=== PATIENT | male | born 1965 | race American Indian/Alaskan Native ===

== ENCOUNTER 2017-05-27 09:20 | Emergency (ER) | payer MEDICARE ==
--- NOTE | 2017-05-27 12:11 | Cat Scan Report ---
CT FACIAL BONES WITHOUT CONTRAST: HISTORY: Cellulitis, pain, orbital cellulitis. TECHNIQUE: Helical CT images with sagittal and coronal CT reformations. FINDINGS: There is moderate soft tissue swelling in the right periorbital region consistent with a post-septal cellulitis. The orbital contents are within normal limits bilaterally. No retro-orbital pathology is appreciated. The orbital cavities are symmetric and intact. The mandible is intact. The skull base and upper cervical spine demonstrate no evidence for acute injury. There is near-complete opacification of the right maxillary sinus. There is mild mucosal thickening in the ethmoid air cells and left maxillary sinus. No sinus wall fracture. IMPRESSION: Findings consistent with post-septal orbital cellulitis on the right side. Sinus disease which appears chronic. No facial bone injury or abnormality detected.
--- NOTE | 2017-05-27 12:14 | Emergency Department Report ---
ED Eye Problem HPI - General Chief complaint: Eye Problems Stated complaint: INSECT BITE REACTION Source: patient Mode of arrival: Ambulatory Limitations: No Limitations - History of Present Illness Initial comments: 52 y/o M with a PMHx of type I DM and HTN presents with a R sided abscesss and periorbital swelling that pt stated started on after he walked into a spider web at work. He states that it stated off as itching and so he wiped the area with an alcohol swab. Pt was seen in dialysis on Sunday and states that the pain and swelling had worsened and the doctor started him on LVQ and advised to come to the ER if the swelling and pain continues. Pt reports to pain, tightness, blurried vision, no chest pain, SOB, diff breathing, chest tightness, oozing, pus, or drainage from the site. Drug allergy to lisinopril. -: days(s) (2-3 days) Onset Description: gradual Location: right eye Place: work Eye Symptoms: redness, pain, decreased vision, blurry vision Severity: severe Severity scale (0 -10): 9 If Pain, Quality: throbbing Consistency: constant Associated Symptoms: none Treatments Prior to Arrival: other (LVQ) - Related Data Previous Rx's Medication Instructions Recorded Last Taken Type Insulin NPH/Regular [NovoLIN 70/30] 10 unit SUB-Q BIDDIAB #500 units 02/03/15 Unknown Rx Ciprofloxacin HCl [Ciprofloxacin 500 mg PO Q48H #20 tablet 05/20/16 Unknown Rx TAB] Gabapentin [Neurontin] 100 mg PO Q12H #60 capsule 05/20/16 Unknown Rx Thiamine [Vitamin B-1] 100 mg PO QDAY #30 tablet 05/20/16 Unknown Rx Verapamil ER [Calan SR] 180 mg PO DAILY #30 tablet 05/20/16 Unknown Rx hydrALAZINE [Apresoline TAB] 50 mg PO Q8HR #90 tablet 05/20/16 Unknown Rx metroNIDAZOLE [Flagyl] 500 mg PO Q8HR #7 day 05/20/16 Unknown Rx Allergies Allergy/AdvReac Type Severity Reaction Status Date / Time lisinopril Allergy Swelling Verified 05/14/16 20:20 ED Review of Systems ROS: Stated complaint: INSECT BITE REACTION Other details as noted in HPI Constitutional: denies: chills, fever Eyes: eye pain, vision change, other (swelling around the right orbit, and a quarter-sized abscess noted just lateral to the R eyelid) ENT: denies: ear pain, throat pain Respiratory: denies: cough, shortness of breath, wheezing Cardiovascular: denies: chest pain, palpitations Gastrointestinal: denies: abdominal pain, nausea, diarrhea Genitourinary: denies: urgency, dysuria Skin: other (there is a quarter-sized abscess lateral to the R eye) Neurological: denies: headache, weakness, paresthesias Psychiatric: denies: anxiety, depression ED Past Medical Hx - Past Medical History Hx Hypertension: Yes Hx Congestive Heart Failure: No Hx Diabetes: Yes Hx Liver Disease: No Hx Renal Disease: No Hx Arthritis: No Hx Headaches / Migraines: No Hx Seizures: No Hx Kidney Stones: No Hx Asthma: No Hx COPD: No Hx Dementia: No Hx HIV: No Additional medical history: prostate cancer removed - Surgical History Additional Surgical History: Fistula in Left Arm. prostate removal for cancer - Social History Smoking Status: Never Smoker - Medications Home Medications: Home Medications Medication Instructions Recorded Confirmed Last Taken Type Insulin NPH/Regular [NovoLIN 70/30] 10 unit SUB-Q BIDDIAB #500 units 02/03/15 Unknown Rx Ciprofloxacin HCl [Ciprofloxacin 500 mg PO Q48H #20 tablet 05/20/16 Unknown Rx TAB] Gabapentin [Neurontin] 100 mg PO Q12H #60 capsule 05/20/16 Unknown Rx Thiamine [Vitamin B-1] 100 mg PO QDAY #30 tablet 05/20/16 Unknown Rx Verapamil ER [Calan SR] 180 mg PO DAILY #30 tablet 05/20/16 Unknown Rx hydrALAZINE [Apresoline TAB] 50 mg PO Q8HR #90 tablet 05/20/16 Unknown Rx metroNIDAZOLE [Flagyl] 500 mg PO Q8HR #7 day 05/20/16 Unknown Rx ED Physical Exam - General Limitations: No Limitations General appearance: alert, in no apparent distress - Head Head exam: Present: atraumatic, normocephalic - Eye Eye exam: Present: PERRL, EOMI, other (no pain with EOMI, there is signficant swelling and TTP at the right periorbital region, visual carmona were normal, no major changes in visual acuity) Pupils: Present: normal accommodation - Expanded Eye Exam Expanded Eyelids: Swelling: Right Pupils: Regular, Round: Right, Reactive: Right - ENT ENT exam: Present: mucous membranes moist - Neck Neck exam: Present: normal inspection, full ROM - Respiratory Respiratory exam: Present: normal lung sounds bilaterally. Absent: respiratory distress - Cardiovascular Cardiovascular Exam: Present: regular rate, normal rhythm. Absent: systolic murmur, diastolic murmur, rubs, gallop - Neurological Exam Neurological exam: Present: alert, oriented X3, normal gait - Psychiatric Psychiatric exam: Present: normal affect, normal mood - Skin Skin exam: Present: other (there is a quarter-sized abscess noted lateral to the periorbital swelling of the R eye, TTP with mild warmth to touch, no acitve oozing, pus, or drainage noted at the site) ED Course Vital Signs 05/27/17 05/27/17 09:25 13:41 Temperature 98.3 F 98.8 F Pulse Rate 100 H 82 Respiratory 16 18 Rate Blood Pressure 147/76 Blood Pressure 161/81 [Left] O2 Sat by Pulse 96 100 Oximetry ED Medical Decision Making - Lab Data Result diagrams: 05/27/17 12:27 05/27/17 12:27 - Radiology Data Radiology results: image reviewed Facial CT: Findings consistent with post-septal orbital cellulitis on the right side. Sinus disease which appears chronic. No facial bone injury or abnormality detected. - Medical Decision Making Pt was examined by myself and Dr. Cordova. Facial CT was indicative of post- septal cellulitis. Basic lab work was also conducted on the pt here in the ED including CBC with diff and BMP. Pt was given 3 grams of ampillicin/sulbactam. [facility]Dr. Denton[facility] was made by Dr. Cordova, for further evaluation and work-up regarding this condition. Critical care attestation.: If time is entered above; I have spent that time in minutes in the direct care of this critically ill patient, excluding procedure time. ED Disposition Clinical Impression: Cellulitis Qualifiers: Site of cellulitis: periorbital Laterality: right Qualified Code(s): L03.213 - Periorbital cellulitis Disposition: DC/TX-70 ANOTHER TYPE HLTHCARE Is pt being admited?: Yes Does the pt Need Aspirin: No Condition: Poor Additional Instructions: [facility]- Dr. Denton. Referrals: PRIMARY CARE, [Primary Care Provider] - 3-5 Days
[2017-05-27 12:50] LABS: Basophils % (Auto) 0.6 % (0.0-1.8); Eosinophils % (Auto) 1.9 % (0.0-4.3); Hemoglobin 11.3 gm/dl (11.8-15.2); Mean Corpuscular HGB Conc 32 % (32-34); Mean Corpuscular Hemoglobin 30 pg (28-32); Mean Corpuscular Volume 93 fl (84-94); Platelet Count 134 K/mm3 (140-440); Red Blood Count 3.78 M/mm3 (3.65-5.03); Red Cell Distribution Width 14.2 % (13.2-15.2)
[2017-05-27 12:58] LABS: Chloride 98.5 mmol/L (98-107); Potassium 5.4 mmol/L (3.6-5.0)
[2017-05-27] MEDS ORDERED: UNASYN/NS 3 GM/100 ML 3 GM/100 ML BAG IV SCH (13:00)
[2017-05-27] MEDS ORDERED: KIONEX PO ONE (13:02)
--- NOTE | 2017-05-27 13:03 | Event Note ---
Date: 05/27/17 52-year-old male with right-sided with post-septal cellulitis confirmed on CT scan. Patient already seen by his primary care doctor for this as an outpatient , patient prescribed Levaquin, reports compliance, patient require surgical consultation unavailable at this facility. Case discussed with ophthalmology at [facility], Dr. Denton, he will see the patient in consultation. Case presented to the ER physician carmen Rendon, Dr John; they accept the patient as an ER to ER transfer. Sodium: 140 Potassium: 5.4 Chloride: 98.5. Patient informed of these findings, he verbalizes understanding regarding need for transfer. As the patient has a CT scan demonstrated post-septal cellulitis, this is a potentially sight threatening condition, and requires ophthalmology consultation , which this hospital cannot provide. Therefore, it is in the patient's best interest to be transferred to the aforementioned hospital for services not available at this facility. Vital Signs 05/27/17 09:25 Temperature 98.3 F Pulse Rate 100 H Respiratory 16 Rate Blood Pressure 147/76 O2 Sat by Pulse 96 Oximetry Lab Results 05/27/17 05/27/17 Range/Units 12:27 12:27 WBC 8.0 (4.5-11.0) K/mm3 RBC 3.78 (3.65-5.03) M/mm3 Hgb 11.3 L (11.8-15.2) gm/dl Hct 35.0 L (35.5-45.6) % MCV 93 (84-94) fl MCH 30 (28-32) pg MCHC 32 (32-34) % RDW 14.2 (13.2-15.2) % Plt Count 134 L (140-440) K/mm3 Lymph % (Auto) 11.5 L (13.4-35.0) % [place] % (Auto) 10.3 H (0.0-7.3) % Eos % (Auto) 1.9 (0.0-4.3) % Baso % (Auto) 0.6 (0.0-1.8) % Lymph # 0.9 L (1.2-5.4) K/mm3 [place] # 0.8 (0.0-0.8) K/mm3 Eos # 0.2 (0.0-0.4) K/mm3 Baso # 0.0 (0.0-0.1) K/mm3 Seg Neutrophils % 75.7 H (40.0-70.0) % Seg Neutrophils # 6.0 (1.8-7.7) K/mm3 Carbon Dioxide 23 (22-30) mmol/L BUN 41 H (9-20) mg/dL Creatinine 11.7 H (0.8-1.5) mg/dL Estimated GFR 6 ml/min BUN/Creatinine Ratio 4 % Glucose 86 (75-100) mg/dL Calcium 10.0 (8.4-10.2) mg/dL
[2017-05-27] MEDS ORDERED: TYLENOL #3 PO ONE (13:21)
[2017-05-27 13:42] VITALS: BP 161/81
== END 2017-05-27 15:15 | disposition other institution (70) ==
LOC: ED 09:20
DX: L03.213 Periorbital cellulitis (principal); T63.391A Toxic effect of venom of other spider, accidental (unintentional), initial encounter; E11.9 Type 2 diabetes mellitus without complications; I10 Essential (primary) hypertension; Z79.4 Long term (current) use of insulin; Z88.8 Allergy status to other drugs, medicaments and biological substances
CPT/HCPCS: 36415; 70486; 80048; 85025; 96374

== ENCOUNTER 2018-10-23 21:25 | Emergency (ER) | payer MEDICARE ==
--- NOTE | 2018-10-23 22:02 | Emergency Department Report ---
Blank Doc - Documentation Documentation: This is a 53-year-old male that presents with right sided breast area pain with ecchymosis. Patient denies any trauma or injuries. This initial assessment/diagnostic orders/clinical plan/treatment(s) is/are subject to change based on patient's health status, clinical progression and re- assessment by fellow clinical providers in the ED. Further treatment and workup at subsequent clinical providers discretion. Patient/guardians urged not to elope from the ED as their condition may be serious if not clinically assessed and managed. Initial orders include: 1- Patient sent to [facility] for further evaluation and treatment 2- Labs
[2018-10-23 22:04] VITALS: BP 106/61
[2018-10-23 22:47] LABS: Basophils # (Auto) 0.1 K/mm3 (0.0-0.1); Basophils % (Auto) 0.8 % (0.0-1.8); Eosinophils # (Auto) 0.2 K/mm3 (0.0-0.4); Eosinophils % (Auto) 2.3 % (0.0-4.3); Hemoglobin 11.7 gm/dl (11.8-15.2); Lymphocytes # (Auto) 1.3 K/mm3 (1.2-5.4); Lymphocytes % (Auto) 18.9 % (13.4-35.0); Monocytes # (Auto) 0.9 K/mm3 (0.0-0.8); Monocytes % (Auto) 13.3 % (0.0-7.3)
[2018-10-23 22:57] LABS: INR 0.93 (0.87-1.13)
[2018-10-23 22:58] LABS: Partial Thromboplastin Time 32.8 Sec. (24.2-36.6)
[2018-10-23 23:09] LABS: Alanine Aminotransferase 11 units/L (7-56); Albumin 4.1 g/dL (3.9-5); BUN/Creatinine Ratio 5; Blood Urea Nitrogen 40 mg/dL (9-20); Calcium 9.8 mg/dL (8.4-10.2); Hemolysis Index 20
[2018-10-23 23:10] LABS: Bilirubin,Direct < 0.2 mg/dL (0-0.2)
[2018-10-23 23:42] LABS: Hematocrit 37.1 % (35.5-45.6); Mean Corpuscular HGB Conc 31 % (32-34); Mean Corpuscular Volume 96 fl (84-94); Platelet Count 174 K/mm3 (140-440); Red Blood Count 3.88 M/mm3 (3.65-5.03); Red Cell Distribution Width 15.2 % (13.2-15.2)
--- NOTE | 2018-10-24 01:10 | Event Note ---
Date: 10/24/18 Patient presenting with basically nontraumatic spontaneous right sided chest wall ecchymosis, developed over the past 24-36 hours. Minimally tender, however no redness, pus or streaking. Does not appear to be volume overloaded, afebrile with reassuring vital signs, denies hematemesis, bright red blood per rectum, and hemoptysis. Laboratory studies are essentially unremarkable and appeared to be at baseline, this is most likely a spontaneous soft tissue bleed. This can currently be managed with supportive care, it does not appear to rep resent a life-threatening condition, and patient understands return precautions. Vital Signs 10/23/18 22:01 Temperature 97.7 F Pulse Rate 102 H Respiratory 18 Rate Blood Pressure 106/61 O2 Sat by Pulse 97 Oximetry Lab Results 10/23/18 10/23/18 10/23/18 Range/Units 22:22 22:22 22:22 WBC 6.8 (4.5-11.0) K/mm3 RBC 3.88 (3.65-5.03) M/mm3 Hgb 11.7 L (11.8-15.2) gm/dl Hct 37.1 (35.5-45.6) % MCV 96 H (84-94) fl MCH 30 (28-32) pg MCHC 31 L (32-34) % RDW 15.2 (13.2-15.2) % Plt Count 174 (140-440) K/mm3 Lymph % (Auto) 18.9 (13.4-35.0) % [place] % (Auto) 13.3 H (0.0-7.3) % Eos % (Auto) 2.3 (0.0-4.3) % Baso % (Auto) 0.8 (0.0-1.8) % Lymph # 1.3 (1.2-5.4) K/mm3 [place] # 0.9 H (0.0-0.8) K/mm3 Eos # 0.2 (0.0-0.4) K/mm3 Baso # 0.1 (0.0-0.1) K/mm3 Seg Neutrophils % 64.7 (40.0-70.0) % Seg Neutrophils # 4.4 (1.8-7.7) K/mm3 PT 13.0 (12.2-14.9) Sec. INR 0.93 (0.87-1.13) APTT 32.8 (24.2-36.6) Sec. Sodium 137 (137-145) mmol/L Potassium 4.6 (3.6-5.0) mmol/L Chloride 93.7 L (98-107) mmol/L Carbon Dioxide 28 (22-30) mmol/L Anion Gap 20 mmol/L BUN 40 H (9-20) mg/dL Creatinine 8.3 H (0.8-1.5) mg/dL Estimated GFR 8 ml/min BUN/Creatinine Ratio 5 % Glucose 123 H (75-100) mg/dL Calcium 9.8 (8.4-10.2) mg/dL Total Bilirubin 0.30 (0.1-1.2) mg/dL Direct Bilirubin < 0.2 (0-0.2) mg/dL Indirect Bilirubin 0.1 mg/dL AST 15 (5-40) units/L ALT 11 (7-56) units/L Alkaline Phosphatase 146 H (35-129) units/L Total Protein 7.6 (6.3-8.2) g/dL Albumin 4.1 (3.9-5) g/dL Albumin/Globulin Ratio 1.2 %
--- NOTE | 2018-10-24 01:14 | Emergency Department Report ---
- General Chief complaint: Skin Rash Stated complaint: RIGHT SIDE PAIN DISCOLORATION Time Seen by Provider: 10/23/18 22:00 Source: patient Mode of arrival: Ambulatory Limitations: No Limitations - History of Present Illness Initial comments: 53-year-old -[place] male with a past medical history of end-stage renal disease currently on dialysis Sunday and Sunday with a fissure in the left arm reports that he has swelling and pain in the right breast. Patient re ports that on Sunday he had noticed a bump on right breast he did not scratch or pick the bump next morning Sunday he woke up with discoloration of the right breast with pain. Patient reports he did go to dialysis on Sunday informed the charge nurse they recommend for him to follow up at the emergency room if pain continued. MD complaint: discoloration -: days(s) (1) Tetanus Up to Date: yes Location: chest (right breast) Quality: aching Consistency: constant Improves with: none Worsens with: palpation Associated symptoms: denies other symptoms Treatments Prior to Arrival: none - Related Data Previous Rx's Medication Instructions Recorded Last Taken Type Insulin NPH/Regular [NovoLIN 70/30] 10 unit SUB-Q BIDDIAB #500 units 02/03/15 Unknown Rx Ciprofloxacin HCl [Ciprofloxacin 500 mg PO Q48H #20 tablet 05/20/16 Unknown Rx TAB] Gabapentin [Neurontin] 100 mg PO Q12H #60 capsule 05/20/16 Unknown Rx Thiamine [Vitamin B-1] 100 mg PO QDAY #30 tablet 05/20/16 Unknown Rx Verapamil ER [Calan SR] 180 mg PO DAILY #30 tablet 05/20/16 Unknown Rx hydrALAZINE [Apresoline TAB] 50 mg PO Q8HR #90 tablet 05/20/16 Unknown Rx metroNIDAZOLE [Flagyl] 500 mg PO Q8HR #7 day 05/20/16 Unknown Rx Acetaminophen/Codeine [Tylenol 1 tab PO Q6H PRN #12 tab 10/24/18 Unknown Rx /Codeine # 3 tab] Allergies Allergy/AdvReac Type Severity Reaction Status Date / Time lisinopril Allergy Swelling Verified 05/14/16 20:20 Abscess Boil HPI - HPI Chief Complaint: Skin Rash Stated Complaint: RIGHT SIDE PAIN DISCOLORATION Time Seen by Provider: 10/23/18 22:00 Home Medications: Previous Rx's Medication Instructions Recorded Last Taken Type Insulin NPH/Regular [NovoLIN 70/30] 10 unit SUB-Q BIDDIAB #500 units 02/03/15 Unknown Rx Ciprofloxacin HCl [Ciprofloxacin 500 mg PO Q48H #20 tablet 05/20/16 Unknown Rx TAB] Gabapentin [Neurontin] 100 mg PO Q12H #60 capsule 05/20/16 Unknown Rx Thiamine [Vitamin B-1] 100 mg PO QDAY #30 tablet 05/20/16 Unknown Rx Verapamil ER [Calan SR] 180 mg PO DAILY #30 tablet 05/20/16 Unknown Rx hydrALAZINE [Apresoline TAB] 50 mg PO Q8HR #90 tablet 05/20/16 Unknown Rx metroNIDAZOLE [Flagyl] 500 mg PO Q8HR #7 day 05/20/16 Unknown Rx Acetaminophen/Codeine [Tylenol 1 tab PO Q6H PRN #12 tab 10/24/18 Unknown Rx /Codeine # 3 tab] Allergies/Adverse Reactions: Allergies Allergy/AdvReac Type Severity Reaction Status Date / Time lisinopril Allergy Swelling Verified 05/14/16 20:20 ED Review of Systems ROS: Stated complaint: RIGHT SIDE PAIN DISCOLORATION Other details as noted in HPI Comment: All other systems reviewed and negative Skin: change in color ( right breast) ED Past Medical Hx - Past Medical History Hx Hypertension: Yes (controlled) Hx Congestive Heart Failure: No Hx Diabetes: Yes Hx Liver Disease: No Hx Renal Disease: Yes (ESRD) Hx Arthritis: No Hx Headaches / Migraines: No Hx Seizures: No Hx Kidney Stones: No Hx Asthma: No Hx COPD: No Hx Dementia: No Hx HIV: No Additional medical history: prostate cancer removed - Surgical History Additional Surgical History: Fistula in Left Arm. prostate removal for cancer - Social History Smoking Status: Never Smoker Substance Use Type: None - Medications Home Medications: Home Medications Medication Instructions Recorded Confirmed Last Taken Type Insulin NPH/Regular [NovoLIN 70/30] 10 unit SUB-Q BIDDIAB #500 units 02/03/15 05/15/16 Unknown Rx Ciprofloxacin HCl [Ciprofloxacin 500 mg PO Q48H #20 tablet 05/20/16 Unknown Rx TAB] Gabapentin [Neurontin] 100 mg PO Q12H #60 capsule 05/20/16 Unknown Rx Thiamine [Vitamin B-1] 100 mg PO QDAY #30 tablet 05/20/16 Unknown Rx Verapamil ER [Calan SR] 180 mg PO DAILY #30 tablet 05/20/16 Unknown Rx hydrALAZINE [Apresoline TAB] 50 mg PO Q8HR #90 tablet 05/20/16 Unknown Rx metroNIDAZOLE [Flagyl] 500 mg PO Q8HR #7 day 05/20/16 Unknown Rx Acetaminophen/Codeine [Tylenol 1 tab PO Q6H PRN #12 tab 10/24/18 Unknown Rx /Codeine # 3 tab] ED Physical Exam - General Limitations: No Limitations General appearance: alert, in no apparent distress - Head Head exam: Present: atraumatic, normocephalic - Eye Eye exam: Present: EOMI - ENT ENT exam: Present: mucous membranes moist - Respiratory Respiratory exam: Present: normal lung sounds bilaterally. Absent: respiratory distress - Cardiovascular Cardiovascular Exam: Present: regular rate, normal rhythm. Absent: systolic murmur, diastolic murmur, rubs, gallop - Neurological Exam Neurological exam: Present: alert, oriented X3, normal gait - Psychiatric Psychiatric exam: Present: normal affect, normal mood - Expanded Skin Exam Expanded Distribution of rash: chest (right breast) Description of rash: Present: tenderness, erythematous, swelling, other (ecchymotic) ED Course Vital Signs 10/23/18 22:01 Temperature 97.7 F Pulse Rate 102 H Respiratory 18 Rate Blood Pressure 106/61 O2 Sat by Pulse 97 Oximetry ED Medical Decision Making - Lab Data Result diagrams: 10/23/18 22:22 10/23/18 22:22 - Medical Decision Making Patient has been evaluated by this provider in fast track. Patient has also been evaluated by ER attending Discussed with patient that this appears to be a hematoma secondary to his history of end-stage renal disease and the fact that he gets heparin with his dialysis. It was discussed with patient that warm compresses to the right breast with help with his pain. I will discharge patient home on Tylenol No. 3 as patient cannot have ibuprofen secondary to end-stage renal disease. Also discussed the patient if his symptoms persist or gets worse to follow up with his primary care provider patient verbalizes understanding Critical care attestation.: If time is entered above; I have spent that time in minutes in the direct care of this critically ill patient, excluding procedure time. ED Disposition Clinical Impression: Chest wall hematoma, Breast hematoma Disposition: DC-01 TO HOME OR SELFCARE Is pt being admited?: No Does the pt Need Aspirin: No Condition: Stable Instructions: Contusion in Adults (ED) Additional Instructions: Please take pain medication as needed. Please do not operate heavy machinery while taking Tylenol No. 3. Please apply warm compresses. Follow-up which are primary care provider if symptoms persist or gets worse. Prescriptions: Acetaminophen/Codeine [Tylenol /Codeine # 3 tab] 1 tab PO Q6H PRN #12 tab PRN Reason: Pain , Severe (7-10) Referrals: PETE SAMSON MD [Primary Care Provider] - 3-5 Days
--- NOTE | 2018-10-31 00:01 | Cat Scan Report ---
PROCEDURE: CT ABDOMEN PELVIS WO CON TECHNIQUE: Axial images obtained abdomen and pelvis without intravenous contrast. Sagittal and coron al reformatted images obtained. HISTORY: LEFT FLANK PAIN COMPARISONS: None FINDINGS: Lung bases demonstrate hypoventilatory change. Extensive groundglass opacity. No effusion. There is b ilateral gynecomastia. Chest wall collateral vessels noted. Liver demonstrates unremarkable noncontrast appearance Contracted gallbladder. No biliary dilatation Spleen top normal size. No focal lesion. Pancreas unremarkable noncontrast appearance Adrenal glands unremarkable noncontrast appearance Kidneys are atrophic. Extensive vascular calcification. Innumerable small cysts. No hydronephrosis. U reters are nondilated. Bladder contracted. Atherosclerotic calcification of the aorta. No aneurysm. No retroperitoneal adenopathy No bowel obstruction. Retained colonic stool suggesting constipation. No diverticulosis. No diverticu litis. Normal appendix. No free air. No free fluid. Omentum and mesentery unremarkable. No acute bony abnormality. Skeletal system is sclerotic compatible with renal osteodystrophy. No acute bony abnormality IMPRESSION: Severe atrophy of [place] kidneys. Extensive vascular calcification Kidneys demonstrate innumerable cysts. There is no hydronephrosis Colonic stool suggesting constipation No free air. No free fluid. No bowel obstruction No acute inflammatory change Lung bases demonstrate hypoventilatory changes Collateral vessels noted of the anterior abdominal wall Gynecomastia Changes of renal osteodystrophy. This document is electronically signed by Elfego Squires MD., October 30 2018 11:58:47 PM ET
== END 2018-10-24 01:38 | disposition home or self-care (01) ==
LOC: ED 21:25
DX: S20.01XA Contusion of right breast, initial encounter (principal); E11.22 Type 2 diabetes mellitus with diabetic chronic kidney disease; I12.0 Hypertensive chronic kidney disease with stage 5 chronic kidney disease or end stage renal disease; N18.6 End stage renal disease; R10.9 Unspecified abdominal pain; Z99.2 Dependence on renal dialysis; Z79.4 Long term (current) use of insulin; Z79.899 Other long term (current) drug therapy; Z88.6 Allergy status to analgesic agent; X58.XXXA Exposure to other specified factors, initial encounter; Y93.89 Activity, other specified; Y92.89 Other specified places as the place of occurrence of the external cause; Y99.8 Other external cause status
CPT/HCPCS: 36415; 74176; 80048; 80076; 85025; 85610; 85730

== ENCOUNTER 2018-11-17 15:01 | Emergency (ER) | payer MEDICARE ==
[2018-11-17 15:16] VITALS: BP 111/72
--- NOTE | 2018-11-17 15:18 | Emergency Department Report ---
Blank Doc - Documentation Documentation: 53 y o male presents with rectal pain x 2 days, no blood, watery loose stools pt on dialsyis MWF non tender abdomen labs, xr ordered acc eval
[2018-11-17 16:07] LABS: Basophils % (Auto) 0.6 % (0.0-1.8); Eosinophils # (Auto) 0.1 K/mm3 (0.0-0.4); Eosinophils % (Auto) 2.3 % (0.0-4.3); Hematocrit 37.1 % (35.5-45.6); Hemoglobin 11.9 gm/dl (11.8-15.2); Lymphocytes % (Auto) 16.6 % (13.4-35.0); Mean Corpuscular HGB Conc 32 % (32-34); Mean Corpuscular Volume 96 fl (84-94); Monocytes # (Auto) 0.6 K/mm3 (0.0-0.8); Monocytes % (Auto) 9.1 % (0.0-7.3); Platelet Count 151 K/mm3 (140-440); Red Blood Count 3.88 M/mm3 (3.65-5.03); Red Cell Distribution Width 15.9 % (13.2-15.2)
--- NOTE | 2018-11-17 17:03 | XRay Report ---
PROCEDURE: XR ABDOMEN 2V TECHNIQUE: Frontal views of the abdomen and pelvis in the supine and upright positions HISTORY: Abdominal Pain COMPARISONS: CT abdomen and pelvis dated October 23, 2018 FINDINGS: The bowel gas pattern is nonobstructive with air in mildly distended loops of colon with multiple air -fluid levels in the ascending and proximal transverse colon on the upright view. This is similar in appearance to the CT abdomen and pelvis dated October 23, 2018. This may represent changes of enteritis. There is no evidence of pneumoperitoneum. The bony structures are unremarkable. IMPRESSION: 1. Nonobstructed bowel gas pattern. 2. Air-fluid levels in the ascending and proximal transverse colon on the upright view similar in mason earance to the previous CT abdomen and pelvis dated October 23, 2017. This may represent changes of ente ritis. If further imaging is required, CT abdomen and pelvis may be helpful. This document is electronically signed by Hallie Morillo MD., November 17 2018 05:01:48 PM ET
--- NOTE | 2018-11-17 17:14 | Emergency Department Report ---
ED General Adult HPI - General Chief complaint: Abdominal Pain Stated complaint: URINATE PROBLEMS/RECTUM PAIN Time Seen by Provider: 11/17/18 15:13 Source: patient Mode of arrival: Ambulatory Limitations: No Limitations - History of Present Illness Initial comments: Pt is a 53 yo male who presents to the ED with c/o rectal pain that began two days ago. He has pain when having a BM. He states he does strain to have a BM. He denies any constipation and states he had a normal BM today. He denies any rectal bleeding, hematocheiza, fever, N/V, drainage from the rectum, hx of hemorrhoids. The patient states he does not take a stool softener. The patient states he had a colonscopy in 2014 which he reports was normal and states he was told to return in 5 years. He is a dialysis patient (MWF) he states he last had it on sunday and will have it again tomorrow. He does not make urine. He denies any CP, palpitations, N/V, or any other sx. Severity scale (0 -10): 9 - Related Data Previous Rx's Medication Instructions Recorded Last Taken Type Insulin NPH/Regular [NovoLIN 70/30] 10 unit SUB-Q BIDDIAB #500 units 02/03/15 Unknown Rx Gabapentin [Neurontin] 100 mg PO Q12H #60 capsule 05/20/16 Unknown Rx Thiamine [Vitamin B-1] 100 mg PO QDAY #30 tablet 05/20/16 Unknown Rx Verapamil ER [Calan SR] 180 mg PO DAILY #30 tablet 05/20/16 Unknown Rx hydrALAZINE [Apresoline TAB] 50 mg PO Q8HR #90 tablet 05/20/16 Unknown Rx Acetaminophen/Codeine [Tylenol 1 tab PO Q6H PRN #12 tab 10/24/18 Unknown Rx /Codeine # 3 tab] Hydrocortisone [Anucort-HC SUPPOS] 25 mg RC BID #20 supp.rect 11/17/18 Unknown Rx Polyethylene Glycol 3350 [Miralax] 119 gm PO DAILY #1 powder 11/17/18 Unknown Rx Sennosides/Docusate Sodium 1 each PO TID #20 tablet 11/17/18 Unknown Rx [Docusate Sodium-Senna Tablet] Allergies Allergy/AdvReac Type Severity Reaction Status Date / Time lisinopril Allergy Swelling Verified 05/14/16 20:20 ED Review of Systems ROS: Stated complaint: URINATE PROBLEMS/RECTUM PAIN Other details as noted in HPI Comment: All other systems reviewed and negative ED Past Medical Hx - Past Medical History Hx Hypertension: Yes (controlled) Hx Congestive Heart Failure: No Hx Diabetes: Yes Hx Liver Disease: No Hx Renal Disease: Yes (ESRD) Hx Arthritis: No Hx Headaches / Migraines: No Hx Seizures: No Hx Kidney Stones: No Hx Asthma: No Hx COPD: No Hx Dementia: No Hx HIV: No Additional medical history: prostate cancer removed - Surgical History Past Surgical History?: Yes Additional Surgical History: Fistula in Left Arm. prostate removal for cancer - Social History Smoking Status: Never Smoker Substance Use Type: None - Medications Home Medications: Home Medications Medication Instructions Recorded Confirmed Last Taken Type Insulin NPH/Regular [NovoLIN 70/30] 10 unit SUB-Q BIDDIAB #500 units 02/03/15 05/15/16 Unknown Rx Gabapentin [Neurontin] 100 mg PO Q12H #60 capsule 05/20/16 Unknown Rx Thiamine [Vitamin B-1] 100 mg PO QDAY #30 tablet 05/20/16 Unknown Rx Verapamil ER [Calan SR] 180 mg PO DAILY #30 tablet 05/20/16 Unknown Rx hydrALAZINE [Apresoline TAB] 50 mg PO Q8HR #90 tablet 05/20/16 Unknown Rx Acetaminophen/Codeine [Tylenol 1 tab PO Q6H PRN #12 tab 10/24/18 Unknown Rx /Codeine # 3 tab] Hydrocortisone [Anucort-HC SUPPOS] 25 mg RC BID #20 supp.rect 11/17/18 Unknown Rx Polyethylene Glycol 3350 [Miralax] 119 gm PO DAILY #1 powder 11/17/18 Unknown Rx Sennosides/Docusate Sodium 1 each PO TID #20 tablet 11/17/18 Unknown Rx [Docusate Sodium-Senna Tablet] ED Physical Exam - General Limitations: No Limitations General appearance: alert, in no apparent distress - Head Head exam: Present: atraumatic, normocephalic - Eye Eye exam: Present: normal appearance, PERRL, EOMI - ENT ENT exam: Present: mucous membranes moist - Respiratory Respiratory exam: Absent: respiratory distress - Cardiovascular Cardiovascular Exam: Present: regular rate - GI/Abdominal GI/Abdominal exam: Present: soft. Absent: distended, tenderness, guarding, rebound, rigid - Rectal Rectal exam: Present: normal rectal tone, heme (-) stool, hemorrhoids, other (3 external hemorrhoids on examination, no internal hemorrhoids, brown stool on exam, hemocult negative) - Neurological Exam Neurological exam: Present: alert, oriented X3 - Psychiatric Psychiatric exam: Present: normal affect, normal mood - Skin Skin exam: Present: warm, dry, intact ED Course Vital Signs 11/17/18 15:14 Temperature 97.5 F L Pulse Rate 94 H Respiratory 18 Rate Blood Pressure 111/72 O2 Sat by Pulse 94 Oximetry ED Medical Decision Making - Lab Data Result diagrams: 11/17/18 15:41 11/17/18 15:41 Lab Results 11/17/18 11/17/18 Range/Units 15:41 15:41 WBC 6.1 (4.5-11.0) K/mm3 RBC 3.88 (3.65-5.03) M/mm3 Hgb 11.9 (11.8-15.2) gm/dl Hct 37.1 (35.5-45.6) % MCV 96 H (84-94) fl MCH 31 (28-32) pg MCHC 32 (32-34) % RDW 15.9 H (13.2-15.2) % Plt Count 151 (140-440) K/mm3 Lymph % (Auto) 16.6 (13.4-35.0) % Carter % (Auto) 9.1 H (0.0-7.3) % Eos % (Auto) 2.3 (0.0-4.3) % Baso % (Auto) 0.6 (0.0-1.8) % Lymph # 1.0 L (1.2-5.4) K/mm3 Carter # 0.6 (0.0-0.8) K/mm3 Eos # 0.1 (0.0-0.4) K/mm3 Baso # 0.0 (0.0-0.1) K/mm3 Seg Neutrophils % 71.4 H (40.0-70.0) % Seg Neutrophils # 4.4 (1.8-7.7) K/mm3 Sodium 136 L (137-145) mmol/L Potassium 5.0 (3.6-5.0) mmol/L Chloride 92.4 L (98-107) mmol/L Carbon Dioxide 23 (22-30) mmol/L Anion Gap 26 mmol/L BUN 62 H (9-20) mg/dL Creatinine 13.6 H (0.8-1.5) mg/dL Estimated GFR 5 ml/min BUN/Creatinine Ratio 5 % Glucose 179 H (75-100) mg/dL Calcium 9.0 (8.4-10.2) mg/dL - Radiology Data Radiology results: report reviewed HISTORY: Abdominal Pain COMPARISONS: CT abdomen and pelvis dated October 23, 2018 FINDINGS: The bowel gas pattern is nonobstructive with air in mildly distended loops of colon with multiple air-fluid levels in the ascending and proximal transverse colon on the upright view. This is similar in appearance to the CT abdomen and pelvis dated October 23, 2018. This may represent changes of enteritis. There is no evidence of pneumoperitoneum. The bony structures are unremarkable. IMPRESSION: 1. Nonobstructed bowel gas pattern. 2. Air-fluid levels in the ascending and proximal transverse colon on the upright view similar in appearance to the previous CT abdomen and pelvis dated October 23, 2017. This may represent changes of enteritis. If further imaging is required, CT abdomen and pelvis may be helpful. This document is electronically signed by Hallie Morillo MD., November 17 2018 05:01:48 PM ET - Medical Decision Making Pt is a 53 yo male who presents to the ED with c/o rectal pain that began two days ago. He has pain when having a BM. He states he does strain to have a BM. He denies any constipation and states he had a normal BM today. He denies any rectal bleeding, hematocheiza, fever, N/V, drainage from the rectum, hx of hemorrhoids. The patient states he does not take a stool softener. The patient states he had a colonscopy in 2015 which he reports was normal and states he was told to return in 5 years. He is a dialysis patient (MWF) he states he last had it on sunday and will have it again tomorrow. He does not make urine. He denies any CP, palpitations, N/V, or any other sx. on examination pt has three external hemorrhoids, no internal hemorrhoids, brown stool, hemocult negative. pt has no abd tenderness, no N/V/D. Will give pt hemorrhoid tx, stool softener and miralax. Advised pt to see GI doctor and PCP in the next 2-3 days. Return to the emergency room for any new or worsening symptoms. Pt has dialysis tomorrow, electrolytes are stable, vitals stable, advised to please go to appointment tomorrow november 18. - Differential Diagnosis Hemorrhoids, Anal fissure, Constipation Critical care attestation.: If time is entered above; I have spent that time in minutes in the direct care of this critically ill patient, excluding procedure time. ED Disposition Clinical Impression: ESRD (end stage renal disease) Hemorrhoids Qualifiers: Hemorrhoid type: unspecified Qualified Code(s): K64.9 - Unspecified hemorrhoids Constipation Qualifiers: Constipation type: unspecified constipation type Qualified Code(s): K59.00 - Constipation, unspecified Disposition: TO HOME OR SELFCARE Is pt being admited?: No Does the pt Need Aspirin: No Condition: Stable Instructions: Constipation (ED), Hemorrhoids (ED), Chronic Kidney Disease (ED), High Fiber Diet (ED) Additional Instructions: Please go to dialysis tomorrow (november 18). Use all medication as prescribed. Follow up with your GI doctor in the next 2-3 days. Follow up with your primary care doctor in the next 2-3 days. Return to the emergency room for any new or worsening symptoms. Prescriptions: Hydrocortisone [Anucort-HC SUPPOS] 25 mg RC BID #20 supp.rect Sennosides/Docusate Sodium [Docusate Sodium-Senna Tablet] 1 each PO TID #20 tablet Polyethylene Glycol 3350 [Miralax] 119 gm PO DAILY #1 powder Referrals: NOHEMI SILVA [Other] - 2-3 Days [facility] [Provider Group] - 2-3 Days Time of Disposition: 17:24 Print Language: ROMANIAN
== END 2018-11-17 17:46 | disposition home or self-care (01) ==
LOC: ED 15:01
DX: K64.9 Unspecified hemorrhoids (principal); K59.00 Constipation, unspecified; E11.22 Type 2 diabetes mellitus with diabetic chronic kidney disease; I12.0 Hypertensive chronic kidney disease with stage 5 chronic kidney disease or end stage renal disease; N18.6 End stage renal disease; Z99.2 Dependence on renal dialysis; Z88.8 Allergy status to other drugs, medicaments and biological substances
CPT/HCPCS: 36415; 74019; 80048; 85025